=== PATIENT | male | born 1945 | race Caucasian/White ===

== ENCOUNTER 2017-09-16 13:08 | Inpatient (IN) | payer OTHER ==
[2017-09-16] MEDS: ONDANSETRON 4MG/2ML VIAL (J2405) IV (13:50)
[2017-09-16] MEDS: ADACEL/BOOSTRIX VACCINE (DIPHTH/PERTUSS/ACELL/TETANUS)0.5ML SYR (90715) IM (13:50)
[2017-09-16] MEDS: MORPHINE 4 MG/ML 1ML VIAL/SYRINGE (J2270) IV ×2 (13:51→15:44)
[2017-09-16 14:43] LABS: HEMATOCRIT 38.7 % (42.0-52.0); HEMOGLOBIN 13.4 g/dl (13.5-17.5); MEAN CORPUSCULAR HEMOGLOBIN 30.9 pg (27.0-33.0); MEAN CORPUSCULAR HGB CONC 34.6 g/dl (32.0-36.5); MEAN CORPUSCULAR VOLUME 89.4 fl (80.0-96.0); PLATELET COUNT, AUTOMATED 173 10^3/uL (150-450); RED BLOOD COUNT 4.33 10^6/uL (4.30-6.10); RED CELL DISTRIBUTION WIDTH 12.6 % (11.5-14.5); WHITE BLOOD COUNT 5.9 10^3/uL (4.0-10.0)
[2017-09-16 14:50] LABS: ALBUMIN 3.9 GM/DL (3.2-5.2); ALBUMIN/GLOBULIN RATIO 1.18 (1.00-1.93); ALKALINE PHOSPHATASE 61 U/L (45-117); ALT/SGPT 139 U/L (12-78); ANION GAP 11 MEQ/L (8-16); AST/SGOT 140 U/L (7-37); BILIRUBIN,DIRECT 0.1 MG/DL (0.0-0.2); BILIRUBIN,TOTAL 0.9 MG/DL (0.2-1.0); BLOOD UREA NITROGEN 23 MG/DL (7-18); CALCIUM LEVEL 8.9 MG/DL (8.8-10.2); CARBON DIOXIDE LEVEL 25 MEQ/L (21-32); CHLORIDE LEVEL 106 MEQ/L (98-107); CREATININE FOR GFR 1.37 MG/DL (0.70-1.30); GLOMERULAR FILTRATION RATE 54.7 (>42); GLUCOSE, FASTING 168 MG/DL (70-100); POTASSIUM SERUM 4.2 MEQ/L (3.5-5.1); SODIUM LEVEL 142 MEQ/L (136-145); TOTAL PROTEIN 7.2 GM/DL (6.4-8.2)
[2017-09-16] MEDS ORDERED: ISOVUE-370 76% 100ML VIAL (Q9967) As Ordered (14:57)
[2017-09-16] MEDS: NS 1,000 ML IV (16:00)
[2017-09-16 16:06] LABS: INR 0.94; PROTHROMBIN TIME 12.7 SECONDS (12.4-14.5)
[2017-09-16 16:07] LABS: PARTIAL THROMBOPLASTIN TIME 24.6 SECONDS (26.8-37.9)
[2017-09-16 16:37] LABS: ABG BASE EXCESS -3.3 (-2.0-2.0); ABG HCO3 21.9 MEQ/L (22.0-26.0); ABG O2 SATURATION 90.9 % (95.0-99.0); ABG PARTIAL PRESSURE CO2 39.9 mmHg (35.0-45.0); ABG PARTIAL PRESSURE O2 59.3 mmHg (75.0-100.0); ABG STANDARD HCO3 21.6 MEQ/L (22.0-26.0); ABG TOTAL CO2 23.1 MEQ/L (23.0-31.0); ABG pH (ARTERIAL) 7.357 UNITS (7.350-7.450)
[2017-09-16] MEDS ORDERED: BISACODYL 10 MG SUPP PR (17:00)
[2017-09-16] MEDS ORDERED: ONDANSETRON 4MG/2ML VIAL (J2405) IV ×2 (17:00→18:00)
[2017-09-16] MEDS ORDERED: PERCOCET 5MG/325MG TAB PO ×2 (17:00)
[2017-09-16] MEDS ORDERED: LEVALBUTEROL 1.25 MG/0.5 ML CONCENTRATE NEB NEB (17:00)
[2017-09-16] MEDS ORDERED: FENTANYL 2MCG/ML BUPIVACAINE 0.0625% NACL 250ML IV BAG As Ordered (17:43)
[2017-09-16] MEDS ORDERED: NALOXONE INJ 0.4 MG/1 ML VIAL (J2310) IV (18:00)
[2017-09-16] MEDS ORDERED: EPIDURAL/PCA KEYS XX (18:00)
[2017-09-16] MEDS ORDERED: KETOROLAC 30 MG/ML VIAL (J1885) IV (18:00)
[2017-09-16] MEDS ORDERED: WALLBOXKEY XX (18:00)
[2017-09-16] MEDS ORDERED: METOCLOPRAMIDE INJ 10MG/2ML VIAL (J2765) IV (18:00)
[2017-09-16] MEDS ORDERED: diphenhydrAMINE INJ 50MG/ML VIAL (J1200) IV (18:00)
[2017-09-16] MEDS ORDERED: MIDAZOLAM INJ 2 MG/2 ML VIAL (J2250) As Ordered (18:00)
[2017-09-16] MEDS ORDERED: fentaNYL 100 MCG/2 ML INJECTION (J3010) As Ordered (18:00)
[2017-09-16] MEDS: fentaNYL 100 MCG/2 ML INJECTION (J3010) IV (18:14)
[2017-09-16] MEDS: MIDAZOLAM INJ 2 MG/2 ML VIAL (J2250) IV ×2 (18:14→18:15)
[2017-09-16] MEDS: NS 500 ML IV (19:00)
[2017-09-16] MEDS ORDERED: PHENYLEPHRINE INJ 10MG/ML VIAL (J2370) As Ordered (19:13)
[2017-09-16] MEDS: LEVALBUTEROL 1.25 MG/0.5 ML CONCENTRATE NEB NEB (20:00)
[2017-09-16] MEDS: KCL 20MEQ IN D5/NS 1000ML 1,000 ML IV (20:22)
[2017-09-16] MEDS: FENTANYL/BUPIVACAINE/NACL BAG 250 ML EPIDURAL (20:23)
[2017-09-16] MEDS: AMOXICILLIN 500 MG CAP PO (20:28)
[2017-09-16] MEDS: DOCUSATE SODIUM 100 MG CAP PO (20:28)
[2017-09-16] MEDS: HEPARIN SOD (PORCINE) 5000 UNITS/ML VIAL SC (20:28)
[2017-09-16] MEDS ORDERED: NS 500 ML IV (20:30)
[2017-09-16] MEDS: NEOSPORIN TOP OINT 15GM TOP (20:30)
[2017-09-16 20:48] LABS: BEDSIDE GLUCOSE 175 MG/DL (83-110)
[2017-09-16] MEDS ORDERED: PHENYLEPHRINE HCL INJ 50 MG in D5W 500 ML IV (22:15)
[2017-09-17] MEDS: ACETAMINOPHEN TAB 650MG DOSE (2X325MG) PO (02:03)
[2017-09-17] MEDS: LEVALBUTEROL 1.25 MG/0.5 ML CONCENTRATE NEB NEB ×4 (02:43→20:10)
[2017-09-17] MEDS: LEVOTHYROXINE 75MCG TABLET (0.075MG) PO (05:38)
[2017-09-17 05:39] LABS: BASO % 0.3 % (0.0-1.0); EOS % 0.6 % (0.0-3.0); HEMATOCRIT 31.3 % (42.0-52.0); IMMATURE GRANULOCYTE % 0.3 % (0-3.0); LYMPH # 0.7 10^3/uL (1.5-4.5); LYMPH % 10.8 % (24.0-44.0); MEAN CORPUSCULAR HEMOGLOBIN 31.3 pg (27.0-33.0); MEAN CORPUSCULAR HGB CONC 35.5 g/dl (32.0-36.5); MEAN CORPUSCULAR VOLUME 88.2 fl (80.0-96.0); MONO # 0.7 10^3/uL (0.0-0.8); MONO % 9.8 % (0.0-5.0); NEUTROPHILS # 5.2 10^3/uL (1.8-7.7); NEUTROPHILS % 78.2 % (36.0-66.0); PLATELET COUNT, AUTOMATED 140 10^3/uL (150-450); RED BLOOD COUNT 3.55 10^6/uL (4.30-6.10); RED CELL DISTRIBUTION WIDTH 12.9 % (11.5-14.5); WHITE BLOOD COUNT 6.6 10^3/uL (4.0-10.0)
[2017-09-17 05:42] LABS: HEMOGLOBIN 11.1 g/dl (13.5-17.5)
[2017-09-17 06:00] LABS: ABG HCO3 22.3 MEQ/L (22.0-26.0); ABG PARTIAL PRESSURE O2 72.8 mmHg (75.0-100.0); ABG TOTAL CO2 23.4 MEQ/L (23.0-31.0); ABG pH (ARTERIAL) 7.409 UNITS (7.350-7.450)
[2017-09-17 06:01] LABS: ABG BASE EXCESS -1.9 (-2.0-2.0); ABG O2 SATURATION 95.1 % (95.0-99.0); ABG STANDARD HCO3 22.8 MEQ/L (22.0-26.0)
[2017-09-17 07:14] LABS: ANION GAP 6 MEQ/L (8-16); BLOOD UREA NITROGEN 20 MG/DL (7-18); CALCIUM LEVEL 7.9 MG/DL (8.8-10.2); CARBON DIOXIDE LEVEL 26 MEQ/L (21-32); CHLORIDE LEVEL 110 MEQ/L (98-107); CREATININE FOR GFR 1.19 MG/DL (0.70-1.30); GLOMERULAR FILTRATION RATE > 60.0 (>42); GLUCOSE, FASTING 188 MG/DL (70-100); POTASSIUM SERUM 4.4 MEQ/L (3.5-5.1); SODIUM LEVEL 142 MEQ/L (136-145)
[2017-09-17] MEDS: MOM 30ML SUSPENSION UDC PO (09:13)
[2017-09-17] MEDS: HEPARIN SOD (PORCINE) 5000 UNITS/ML VIAL SC ×2 (09:13→21:22)
[2017-09-17] MEDS: KCL 20MEQ IN D5/NS 1000ML 1,000 ML IV ×2 (09:13→21:18)
[2017-09-17] MEDS: DOCUSATE SODIUM 100 MG CAP PO ×2 (09:13→21:21)
[2017-09-17] MEDS: GLIMEPIRIDE 2 MG TAB PO ×2 (09:14→17:05)
[2017-09-17] MEDS: AMOXICILLIN 500 MG CAP PO ×2 (09:14→21:20)
[2017-09-17] MEDS: ASPIRIN 81 MG ENTERIC TAB PO (09:14)
[2017-09-17] MEDS: PANTOPRAZOLE 40MG TAB (PROTONIX) PO (09:14)
[2017-09-17] MEDS: PRAVASTATIN 20 MG TAB PO (09:14)
[2017-09-17] MEDS: SITagliptin 50 MG TAB (JANUVIA) PO (09:14)
[2017-09-17] MEDS: metFORMIN (GLUCOPHAGE) 1000 MG TABLET PO ×2 (09:14→11:23)
[2017-09-17] MEDS ORDERED: GLUCAGON FOR INJ 1 MG VIAL (J1610) SC (09:15)
[2017-09-17] MEDS ORDERED: DEXTROSE 50% 50 ML SYRINGE IV (09:15)
[2017-09-17] MEDS ORDERED: GLUCOSE 4 GM CHEW TABLET PO (09:15)
[2017-09-17] MEDS: NEOSPORIN TOP OINT 15GM TOP ×2 (09:16→21:23)
[2017-09-17] MEDS: LISINOPRIL 10 MG TAB PO (09:19)
[2017-09-17] MEDS: KETOROLAC 30 MG/ML VIAL (J1885) IV ×3 (10:05→21:23)
[2017-09-17 11:12] LABS: BEDSIDE GLUCOSE 221 MG/DL (83-110)
[2017-09-17] MEDS: HumaLOG INSULIN (NovoLOG) PER UNIT SC ×3 (11:23→21:00)
[2017-09-17 16:40] LABS: BEDSIDE GLUCOSE 200 MG/DL (83-110)
[2017-09-17] MEDS: FENTANYL/BUPIVACAINE/NACL BAG 250 ML EPIDURAL (18:49)
[2017-09-17 21:21] LABS: BEDSIDE GLUCOSE 155 MG/DL (83-110)
[2017-09-17] MEDS: TAMSULOSIN 0.4 MG CAP PO (21:21)
[2017-09-18] MEDS: LEVALBUTEROL 1.25 MG/0.5 ML CONCENTRATE NEB NEB ×4 (02:09→19:47)
[2017-09-18] MEDS: KETOROLAC 30 MG/ML VIAL (J1885) IV ×4 (03:55→20:02)
[2017-09-18 05:19] LABS: BASO % 0.4 % (0.0-1.0); EOS # 0.1 10^3/uL (0.0-0.50); EOS % 1.8 % (0.0-3.0); HEMATOCRIT 29.7 % (42.0-52.0); HEMOGLOBIN 10.3 g/dl (13.5-17.5); IMMATURE GRANULOCYTE % 0.4 % (0-3.0); LYMPH # 0.7 10^3/uL (1.5-4.5); LYMPH % 14.6 % (24.0-44.0); MEAN CORPUSCULAR HGB CONC 34.7 g/dl (32.0-36.5); MEAN CORPUSCULAR VOLUME 89.5 fl (80.0-96.0); MONO # 0.5 10^3/uL (0.0-0.8); MONO % 10.3 % (0.0-5.0); NEUTROPHILS # 3.6 10^3/uL (1.8-7.7); NEUTROPHILS % 72.5 % (36.0-66.0); PLATELET COUNT, AUTOMATED 111 10^3/uL (150-450); RED BLOOD COUNT 3.32 10^6/uL (4.30-6.10); RED CELL DISTRIBUTION WIDTH 12.9 % (11.5-14.5); WHITE BLOOD COUNT 4.9 10^3/uL (4.0-10.0)
[2017-09-18 05:36] LABS: ANION GAP 12 MEQ/L (8-16); BLOOD UREA NITROGEN 22 MG/DL (7-18); CALCIUM LEVEL 7.5 MG/DL (8.8-10.2); CARBON DIOXIDE LEVEL 23 MEQ/L (21-32); CHLORIDE LEVEL 109 MEQ/L (98-107); CREATININE FOR GFR 1.25 MG/DL (0.70-1.30); GLOMERULAR FILTRATION RATE > 60.0 (>42); GLUCOSE, FASTING 205 MG/DL (70-100); POTASSIUM SERUM 4.3 MEQ/L (3.5-5.1); SODIUM LEVEL 144 MEQ/L (136-145)
[2017-09-18] MEDS: LEVOTHYROXINE 75MCG TABLET (0.075MG) PO (06:00)
[2017-09-18] MEDS: ASPIRIN 81 MG ENTERIC TAB PO (08:06)
[2017-09-18] MEDS: HEPARIN SOD (PORCINE) 5000 UNITS/ML VIAL SC ×2 (08:06→20:01)
[2017-09-18] MEDS: LISINOPRIL 10 MG TAB PO (08:06)
[2017-09-18] MEDS: SITagliptin 50 MG TAB (JANUVIA) PO (08:06)
[2017-09-18] MEDS: MOM 30ML SUSPENSION UDC PO (08:06)
[2017-09-18] MEDS: AMOXICILLIN 500 MG CAP PO ×2 (08:06→20:01)
[2017-09-18] MEDS: DOCUSATE SODIUM 100 MG CAP PO ×2 (08:06→20:01)
[2017-09-18] MEDS: PANTOPRAZOLE 40MG TAB (PROTONIX) PO (08:06)
[2017-09-18] MEDS: PRAVASTATIN 20 MG TAB PO (08:06)
[2017-09-18] MEDS: HumaLOG INSULIN (NovoLOG) PER UNIT SC ×4 (08:07→20:03)
[2017-09-18] MEDS: GLIMEPIRIDE 2 MG TAB PO ×2 (08:07→17:11)
[2017-09-18] MEDS: NEOSPORIN TOP OINT 15GM TOP ×2 (10:29→20:00)
[2017-09-18] MEDS: KCL 20MEQ IN D5/NS 1000ML 1,000 ML IV (10:29)
[2017-09-18 11:25] LABS: BEDSIDE GLUCOSE 187 MG/DL (83-110)
[2017-09-18] MEDS ORDERED: LIDOCAINE 1% MDV 20ML VIAL As Ordered (12:29)
[2017-09-18] MEDS ORDERED: MIDAZOLAM INJ 2 MG/2 ML VIAL (J2250) As Ordered ×4 (12:29)
[2017-09-18] MEDS ORDERED: FLUMAZENIL 0.5 MG/5 ML VIAL As Ordered (12:30)
[2017-09-18] MEDS ORDERED: SLF 3 ML SYR IV (13:15)
[2017-09-18] MEDS: MIDAZOLAM INJ 2 MG/2 ML VIAL (J2250) IV (14:00)
[2017-09-18] MEDS: LIDOCAINE 1% MDV 20ML VIAL IM (14:01)
[2017-09-18] MEDS: metFORMIN (GLUCOPHAGE) 1000 MG TABLET PO ×2 (14:01→17:11)
[2017-09-18 14:02] LABS: LDH LACTATE DEHYDROGENASE 262 U/L (87-241)
[2017-09-18 14:26] LABS: PH BODY FLUID 7.464 UNITS (NOT ESTABLISHED); SOURCE, BODY FLUID pH PLEURAL
[2017-09-18 14:49] LABS: SOURCE, BODY FLUID PLEURAL
[2017-09-18 14:50] LABS: APPEARANCE, BODY FLUID TURBID (CLEAR); PLEURAL FL COLOR RED (COLORLESS); RBC BODY FLUID 1704 10^3/uL (<2); WBC BODY FLUID 5322 /uL (0-10)
[2017-09-18 14:51] LABS: BF DIFF IF INDICATED? YES (NO)
[2017-09-18 15:02] LABS: AMYLASE, BODY FLUID 37 U/L (NOT ESTABLISHED); CHOLESTEROL, BODY FLUID 51 MG/DL (NOT ESTABLISHED); LDH, BODY FLUID 1758 U/L (NOT ESTABLISHED); SOURCE, BODY FLUID ALBUMIN PLEURAL; SOURCE, BODY FLUID AMYLASE PLEURAL; SOURCE, BODY FLUID CHOL PLEURAL; SOURCE, BODY FLUID GLUCOSE PLEURAL; SOURCE, BODY FLUID LDH PLEURAL; SOURCE, BODY FLUID TOT PROTEIN PLEURAL; SOURCE, BODY FLUID TRIG PLEURAL; TOTAL PROTEIN, BODY FLUID 3.5 G/DL (NOT ESTABLISHED); TRIGLYCERIDE, BODY FLUID 83 MG/DL (NOT ESTABLISHED)
[2017-09-18] MEDS: SLF 3 ML SYR IV ×2 (15:58→20:02)
[2017-09-18 16:53] LABS: BEDSIDE GLUCOSE 139 MG/DL (83-110)
[2017-09-18] MEDS: FENTANYL/BUPIVACAINE/NACL BAG 250 ML EPIDURAL (18:12)
[2017-09-18 20:01] LABS: BEDSIDE GLUCOSE 144 MG/DL (83-110)
[2017-09-18] MEDS: TAMSULOSIN 0.4 MG CAP PO (20:01)
[2017-09-18] MEDS: ACETAMINOPHEN TAB 650MG DOSE (2X325MG) PO (23:08)
[2017-09-19] MEDS: LEVALBUTEROL 1.25 MG/0.5 ML CONCENTRATE NEB NEB ×4 (02:37→20:12)
[2017-09-19] MEDS: KETOROLAC 30 MG/ML VIAL (J1885) IV ×4 (02:41→20:03)
[2017-09-19 05:12] LABS: BASO % 0.9 % (0.0-1.0); EOS # 0.2 10^3/uL (0.0-0.50); EOS % 3.2 % (0.0-3.0); HEMATOCRIT 29.1 % (42.0-52.0); HEMOGLOBIN 10.2 g/dl (13.5-17.5); IMMATURE GRANULOCYTE % 0.2 % (0-3.0); LYMPH % 20.8 % (24.0-44.0); MEAN CORPUSCULAR HEMOGLOBIN 31.5 pg (27.0-33.0); MEAN CORPUSCULAR HGB CONC 35.1 g/dl (32.0-36.5); MEAN CORPUSCULAR VOLUME 89.8 fl (80.0-96.0); MONO # 0.4 10^3/uL (0.0-0.8); MONO % 8.7 % (0.0-5.0); NEUTROPHILS # 3.1 10^3/uL (1.8-7.7); NEUTROPHILS % 66.2 % (36.0-66.0); PLATELET COUNT, AUTOMATED 114 10^3/uL (150-450); RED BLOOD COUNT 3.24 10^6/uL (4.30-6.10); RED CELL DISTRIBUTION WIDTH 12.8 % (11.5-14.5); WHITE BLOOD COUNT 4.6 10^3/uL (4.0-10.0)
[2017-09-19 05:31] LABS: ANION GAP 8 MEQ/L (8-16); BLOOD UREA NITROGEN 22 MG/DL (7-18); CALCIUM LEVEL 7.5 MG/DL (8.8-10.2); CARBON DIOXIDE LEVEL 24 MEQ/L (21-32); CHLORIDE LEVEL 111 MEQ/L (98-107); CREATININE FOR GFR 1.24 MG/DL (0.70-1.30); GLOMERULAR FILTRATION RATE > 60.0 (>42); GLUCOSE, FASTING 180 MG/DL (70-100); POTASSIUM SERUM 4.4 MEQ/L (3.5-5.1); SODIUM LEVEL 143 MEQ/L (136-145)
[2017-09-19] MEDS: SLF 3 ML SYR IV ×3 (05:39→21:00)
[2017-09-19] MEDS: LEVOTHYROXINE 75MCG TABLET (0.075MG) PO (06:04)
[2017-09-19] MEDS: metFORMIN (GLUCOPHAGE) 1000 MG TABLET PO ×3 (08:33→18:15)
[2017-09-19] MEDS: HumaLOG INSULIN (NovoLOG) PER UNIT SC ×4 (08:33→20:58)
[2017-09-19] MEDS: GLIMEPIRIDE 2 MG TAB PO ×2 (08:33→18:16)
[2017-09-19] MEDS: PANTOPRAZOLE 40MG TAB (PROTONIX) PO (09:39)
[2017-09-19] MEDS: ASPIRIN 81 MG ENTERIC TAB PO (09:39)
[2017-09-19] MEDS: MOM 30ML SUSPENSION UDC PO (09:39)
[2017-09-19] MEDS: AMOXICILLIN 500 MG CAP PO ×2 (09:39→20:04)
[2017-09-19] MEDS: DOCUSATE SODIUM 100 MG CAP PO ×2 (09:39→20:04)
[2017-09-19] MEDS: SITagliptin 50 MG TAB (JANUVIA) PO (09:39)
[2017-09-19] MEDS: HEPARIN SOD (PORCINE) 5000 UNITS/ML VIAL SC ×2 (09:40→20:04)
[2017-09-19] MEDS: LISINOPRIL 10 MG TAB PO (09:40)
[2017-09-19] MEDS: PRAVASTATIN 20 MG TAB PO (09:40)
[2017-09-19] MEDS: NEOSPORIN TOP OINT 15GM TOP ×2 (09:41→20:04)
[2017-09-19 12:27] LABS: BEDSIDE GLUCOSE 143 MG/DL (83-110)
[2017-09-19] MEDS: ACETAMINOPHEN TAB 650MG DOSE (2X325MG) PO (16:59)
[2017-09-19 18:07] LABS: BEDSIDE GLUCOSE 91 MG/DL (83-110)
[2017-09-19] MEDS: FENTANYL/BUPIVACAINE/NACL BAG 250 ML EPIDURAL (18:14)
[2017-09-19] MEDS: TAMSULOSIN 0.4 MG CAP PO (20:05)
[2017-09-19 20:54] LABS: BEDSIDE GLUCOSE 109 MG/DL (83-110)
[2017-09-20] MEDS: LEVALBUTEROL 1.25 MG/0.5 ML CONCENTRATE NEB NEB ×4 (02:00→19:55)
[2017-09-20] MEDS: KETOROLAC 30 MG/ML VIAL (J1885) IV ×2 (02:55→09:08)
[2017-09-20 04:12] LABS: BASO % 0.4 % (0.0-1.0); EOS # 0.1 10^3/uL (0.0-0.50); EOS % 2.5 % (0.0-3.0); HEMATOCRIT 27.8 % (42.0-52.0); HEMOGLOBIN 9.6 g/dl (13.5-17.5); IMMATURE GRANULOCYTE % 0.4 % (0-3.0); LYMPH # 0.6 10^3/uL (1.5-4.5); LYMPH % 12.3 % (24.0-44.0); MEAN CORPUSCULAR HEMOGLOBIN 31.2 pg (27.0-33.0); MEAN CORPUSCULAR HGB CONC 34.5 g/dl (32.0-36.5); MEAN CORPUSCULAR VOLUME 90.3 fl (80.0-96.0); MONO # 0.4 10^3/uL (0.0-0.8); MONO % 8.3 % (0.0-5.0); NEUTROPHILS # 3.7 10^3/uL (1.8-7.7); NEUTROPHILS % 76.1 % (36.0-66.0); PLATELET COUNT, AUTOMATED 120 10^3/uL (150-450); RED BLOOD COUNT 3.08 10^6/uL (4.30-6.10); RED CELL DISTRIBUTION WIDTH 12.7 % (11.5-14.5); WHITE BLOOD COUNT 4.8 10^3/uL (4.0-10.0)
[2017-09-20 04:27] LABS: ANION GAP 9 MEQ/L (8-16); BLOOD UREA NITROGEN 27 MG/DL (7-18); CALCIUM LEVEL 7.4 MG/DL (8.8-10.2); CARBON DIOXIDE LEVEL 24 MEQ/L (21-32); CHLORIDE LEVEL 109 MEQ/L (98-107); CREATININE FOR GFR 1.35 MG/DL (0.70-1.30); GLOMERULAR FILTRATION RATE 55.6 (>42); GLUCOSE, FASTING 142 MG/DL (70-100); SODIUM LEVEL 142 MEQ/L (136-145)
[2017-09-20 04:29] LABS: POTASSIUM SERUM 5.3 MEQ/L (3.5-5.1)
[2017-09-20] MEDS: SLF 3 ML SYR IV ×3 (05:34→20:57)
[2017-09-20] MEDS: LEVOTHYROXINE 75MCG TABLET (0.075MG) PO (05:34)
[2017-09-20] MEDS: MOM 30ML SUSPENSION UDC PO (09:00)
[2017-09-20] MEDS: ASPIRIN 81 MG ENTERIC TAB PO (09:01)
[2017-09-20] MEDS: DOCUSATE SODIUM 100 MG CAP PO ×2 (09:01→20:55)
[2017-09-20] MEDS: AMOXICILLIN 500 MG CAP PO ×2 (09:01→20:55)
[2017-09-20] MEDS: SITagliptin 50 MG TAB (JANUVIA) PO (09:01)
[2017-09-20] MEDS: LISINOPRIL 10 MG TAB PO (09:02)
[2017-09-20] MEDS: metFORMIN (GLUCOPHAGE) 1000 MG TABLET PO ×3 (09:03→18:24)
[2017-09-20] MEDS: PRAVASTATIN 20 MG TAB PO (09:03)
[2017-09-20] MEDS: PANTOPRAZOLE 40MG TAB (PROTONIX) PO (09:03)
[2017-09-20] MEDS: GLIMEPIRIDE 2 MG TAB PO ×2 (09:04→18:24)
[2017-09-20] MEDS: HumaLOG INSULIN (NovoLOG) PER UNIT SC ×4 (09:06→20:57)
[2017-09-20] MEDS: HEPARIN SOD (PORCINE) 5000 UNITS/ML VIAL SC ×2 (09:06→20:55)
[2017-09-20] MEDS: NEOSPORIN TOP OINT 15GM TOP ×2 (09:08→20:56)
[2017-09-20 12:20] LABS: BEDSIDE GLUCOSE 133 MG/DL (83-110)
[2017-09-20] MEDS: ACETAMINOPHEN TAB 650MG DOSE (2X325MG) PO (12:37)
[2017-09-20 17:38] LABS: BEDSIDE GLUCOSE 92 MG/DL (83-110)
[2017-09-20] MEDS: FENTANYL/BUPIVACAINE/NACL BAG 250 ML EPIDURAL (18:16)
[2017-09-20 20:23] LABS: BEDSIDE GLUCOSE 115 MG/DL (83-110)
[2017-09-20] MEDS: TAMSULOSIN 0.4 MG CAP PO (20:55)
[2017-09-21] MEDS: LEVALBUTEROL 1.25 MG/0.5 ML CONCENTRATE NEB NEB ×4 (00:54→19:59)
[2017-09-21] MEDS: ACETAMINOPHEN TAB 650MG DOSE (2X325MG) PO (01:06)
[2017-09-21 04:58] LABS: BASO % 0.6 % (0.0-1.0); EOS # 0.2 10^3/uL (0.0-0.50); EOS % 3.3 % (0.0-3.0); HEMATOCRIT 25.5 % (42.0-52.0); IMMATURE GRANULOCYTE % 0.4 % (0-3.0); LYMPH # 0.8 10^3/uL (1.5-4.5); LYMPH % 16.5 % (24.0-44.0); MEAN CORPUSCULAR HGB CONC 35.3 g/dl (32.0-36.5); MEAN CORPUSCULAR VOLUME 87.9 fl (80.0-96.0); MONO # 0.5 10^3/uL (0.0-0.8); MONO % 8.8 % (0.0-5.0); NEUTROPHILS # 3.6 10^3/uL (1.8-7.7); NEUTROPHILS % 70.4 % (36.0-66.0); PLATELET COUNT, AUTOMATED 142 10^3/uL (150-450); RED CELL DISTRIBUTION WIDTH 12.4 % (11.5-14.5); WHITE BLOOD COUNT 5.1 10^3/uL (4.0-10.0)
[2017-09-21 05:07] LABS: ANION GAP 8 MEQ/L (8-16); BLOOD UREA NITROGEN 26 MG/DL (7-18); CALCIUM LEVEL 8.1 MG/DL (8.8-10.2); CARBON DIOXIDE LEVEL 25 MEQ/L (21-32); CHLORIDE LEVEL 106 MEQ/L (98-107); CREATININE FOR GFR 1.26 MG/DL (0.70-1.30); GLOMERULAR FILTRATION RATE > 60.0 (>42); GLUCOSE, FASTING 140 MG/DL (70-100); POTASSIUM SERUM 4.5 MEQ/L (3.5-5.1); SODIUM LEVEL 139 MEQ/L (136-145)
[2017-09-21] MEDS: LEVOTHYROXINE 75MCG TABLET (0.075MG) PO (06:20)
[2017-09-21] MEDS: SLF 3 ML SYR IV ×3 (06:20→20:35)
[2017-09-21] MEDS: MOM 30ML SUSPENSION UDC PO (09:00)
[2017-09-21] MEDS: SITagliptin 50 MG TAB (JANUVIA) PO (09:38)
[2017-09-21] MEDS: AMOXICILLIN 500 MG CAP PO ×2 (09:38→20:32)
[2017-09-21] MEDS: ASPIRIN 81 MG ENTERIC TAB PO (09:39)
[2017-09-21] MEDS: PRAVASTATIN 20 MG TAB PO (09:39)
[2017-09-21] MEDS: GLIMEPIRIDE 2 MG TAB PO ×2 (09:39→18:00)
[2017-09-21] MEDS: DOCUSATE SODIUM 100 MG CAP PO ×2 (09:39→20:32)
[2017-09-21] MEDS: PANTOPRAZOLE 40MG TAB (PROTONIX) PO (09:39)
[2017-09-21] MEDS: metFORMIN (GLUCOPHAGE) 1000 MG TABLET PO ×3 (09:40→18:00)
[2017-09-21] MEDS: HEPARIN SOD (PORCINE) 5000 UNITS/ML VIAL SC ×2 (09:41→20:32)
[2017-09-21] MEDS: HumaLOG INSULIN (NovoLOG) PER UNIT SC ×4 (09:41→20:33)
[2017-09-21] MEDS: NEOSPORIN TOP OINT 15GM TOP ×2 (09:42→20:34)
[2017-09-21 12:37] LABS: BEDSIDE GLUCOSE 125 MG/DL (83-110)
[2017-09-21] MEDS: KETOROLAC 30 MG/ML VIAL (J1885) IV ×2 (12:53→18:21)
[2017-09-21] MEDS: FUROSEMIDE 40 MG/4 ML VIAL (J1940) IV (12:54)
[2017-09-21 16:51] LABS: BEDSIDE GLUCOSE 117 MG/DL (83-110)
[2017-09-21] MEDS: FENTANYL/BUPIVACAINE/NACL BAG 250 ML EPIDURAL (18:00)
[2017-09-21 20:19] LABS: BEDSIDE GLUCOSE 93 MG/DL (83-110)
[2017-09-21] MEDS: TAMSULOSIN 0.4 MG CAP PO (20:32)
[2017-09-22] MEDS: LEVALBUTEROL 1.25 MG/0.5 ML CONCENTRATE NEB NEB ×4 (01:17→19:52)
[2017-09-22] MEDS: KETOROLAC 30 MG/ML VIAL (J1885) IV ×4 (01:22→18:37)
[2017-09-22] MEDS: NORCO, ANEXSIA 5/325MG TABLET (HYDROcodone/ACETAMINOPHEN) PO ×3 (04:22→20:24)
[2017-09-22 04:29] LABS: BASO % 0.6 % (0.0-1.0); EOS # 0.2 10^3/uL (0.0-0.50); EOS % 3.7 % (0.0-3.0); HEMATOCRIT 27.5 % (42.0-52.0); HEMOGLOBIN 9.6 g/dl (13.5-17.5); IMMATURE GRANULOCYTE % 0.4 % (0-3.0); LYMPH # 0.7 10^3/uL (1.5-4.5); LYMPH % 13.9 % (24.0-44.0); MEAN CORPUSCULAR HEMOGLOBIN 30.5 pg (27.0-33.0); MEAN CORPUSCULAR HGB CONC 34.9 g/dl (32.0-36.5); MEAN CORPUSCULAR VOLUME 87.3 fl (80.0-96.0); MONO # 0.4 10^3/uL (0.0-0.8); MONO % 7.5 % (0.0-5.0); NEUTROPHILS # 3.8 10^3/uL (1.8-7.7); NEUTROPHILS % 73.9 % (36.0-66.0); PLATELET COUNT, AUTOMATED 149 10^3/uL (150-450); RED BLOOD COUNT 3.15 10^6/uL (4.30-6.10); RED CELL DISTRIBUTION WIDTH 12.3 % (11.5-14.5); WHITE BLOOD COUNT 5.1 10^3/uL (4.0-10.0)
[2017-09-22 04:53] LABS: ANION GAP 9 MEQ/L (8-16); BLOOD UREA NITROGEN 26 MG/DL (7-18); CALCIUM LEVEL 8.4 MG/DL (8.8-10.2); CARBON DIOXIDE LEVEL 26 MEQ/L (21-32); CHLORIDE LEVEL 104 MEQ/L (98-107); GLOMERULAR FILTRATION RATE 58.1 (>42); GLUCOSE, FASTING 146 MG/DL (70-100); POTASSIUM SERUM 4.6 MEQ/L (3.5-5.1); SODIUM LEVEL 139 MEQ/L (136-145)
[2017-09-22] MEDS: LEVOTHYROXINE 75MCG TABLET (0.075MG) PO (06:17)
[2017-09-22] MEDS: SLF 3 ML SYR IV ×3 (06:18→22:00)
[2017-09-22] MEDS: FUROSEMIDE 40 MG/4 ML VIAL (J1940) IV (08:00)
[2017-09-22] MEDS: metFORMIN (GLUCOPHAGE) 1000 MG TABLET PO ×3 (08:00→17:46)
[2017-09-22] MEDS: GLIMEPIRIDE 2 MG TAB PO ×2 (08:00→17:46)
[2017-09-22] MEDS: HumaLOG INSULIN (NovoLOG) PER UNIT SC ×4 (08:00→21:00)
[2017-09-22] MEDS: ASPIRIN 81 MG ENTERIC TAB PO (09:00)
[2017-09-22] MEDS: AMOXICILLIN 500 MG CAP PO ×2 (09:00→20:22)
[2017-09-22] MEDS: SITagliptin 50 MG TAB (JANUVIA) PO (09:00)
[2017-09-22] MEDS: NEOSPORIN TOP OINT 15GM TOP ×2 (09:00→21:00)
[2017-09-22] MEDS: PANTOPRAZOLE 40MG TAB (PROTONIX) PO (09:00)
[2017-09-22] MEDS: MOM 30ML SUSPENSION UDC PO (09:00)
[2017-09-22] MEDS: DOCUSATE SODIUM 100 MG CAP PO ×2 (09:00→20:24)
[2017-09-22] MEDS: PRAVASTATIN 20 MG TAB PO (09:00)
[2017-09-22 12:03] LABS: BEDSIDE GLUCOSE 87 MG/DL (83-110)
[2017-09-22] MEDS: HEPARIN SOD (PORCINE) 5000 UNITS/ML VIAL SC ×2 (12:30→20:22)
[2017-09-22 17:29] LABS: BEDSIDE GLUCOSE 103 MG/DL (83-110)
[2017-09-22] MEDS: TAMSULOSIN 0.4 MG CAP PO (20:22)
[2017-09-22 20:29] LABS: BEDSIDE GLUCOSE 83 MG/DL (83-110)
[2017-09-23] MEDS: KETOROLAC 30 MG/ML VIAL (J1885) IV ×4 (00:13→18:37)
[2017-09-23] MEDS: LEVALBUTEROL 1.25 MG/0.5 ML CONCENTRATE NEB NEB ×4 (00:33→19:55)
[2017-09-23] MEDS: LEVOTHYROXINE 75MCG TABLET (0.075MG) PO (05:34)
[2017-09-23] MEDS: NORCO, ANEXSIA 5/325MG TABLET (HYDROcodone/ACETAMINOPHEN) PO (05:36)
[2017-09-23] MEDS: SLF 3 ML SYR IV ×3 (06:00→21:22)
[2017-09-23] MEDS: GLIMEPIRIDE 2 MG TAB PO ×2 (07:30→17:32)
[2017-09-23] MEDS: HumaLOG INSULIN (NovoLOG) PER UNIT SC ×4 (07:30→21:00)
[2017-09-23 07:53] LABS: BEDSIDE GLUCOSE 87 MG/DL (83-110)
[2017-09-23] MEDS: metFORMIN (GLUCOPHAGE) 1000 MG TABLET PO ×2 (08:00→18:00)
[2017-09-23] MEDS: SITagliptin 50 MG TAB (JANUVIA) PO (08:45)
[2017-09-23] MEDS: MOM 30ML SUSPENSION UDC PO (08:46)
[2017-09-23] MEDS: HEPARIN SOD (PORCINE) 5000 UNITS/ML VIAL SC ×2 (08:46→20:23)
[2017-09-23] MEDS: NEOSPORIN TOP OINT 15GM TOP ×2 (08:46→21:00)
[2017-09-23] MEDS: PRAVASTATIN 20 MG TAB PO (08:47)
[2017-09-23] MEDS: ASPIRIN 81 MG ENTERIC TAB PO (08:47)
[2017-09-23] MEDS: DOCUSATE SODIUM 100 MG CAP PO ×2 (08:47→21:00)
[2017-09-23] MEDS: AMOXICILLIN 500 MG CAP PO ×2 (08:47→20:23)
[2017-09-23] MEDS: PANTOPRAZOLE 40MG TAB (PROTONIX) PO (08:47)
[2017-09-23 11:09] LABS: HEMOGLOBIN 9.9 g/dl (13.5-17.5); MEAN CORPUSCULAR HGB CONC 35.4 g/dl (32.0-36.5); MEAN CORPUSCULAR VOLUME 87.8 fl (80.0-96.0); PLATELET COUNT, AUTOMATED 161 10^3/uL (150-450); RED BLOOD COUNT 3.19 10^6/uL (4.30-6.10); RED CELL DISTRIBUTION WIDTH 12.1 % (11.5-14.5); WHITE BLOOD COUNT 4.3 10^3/uL (4.0-10.0)
[2017-09-23 11:50] LABS: ANION GAP 7 MEQ/L (8-16); BLOOD UREA NITROGEN 27 MG/DL (7-18); CALCIUM LEVEL 8.3 MG/DL (8.8-10.2); CARBON DIOXIDE LEVEL 30 MEQ/L (21-32); CHLORIDE LEVEL 104 MEQ/L (98-107); CREATININE FOR GFR 1.26 MG/DL (0.70-1.30); GLOMERULAR FILTRATION RATE > 60.0 (>42); GLUCOSE, FASTING 152 MG/DL (70-100); POTASSIUM SERUM 4.6 MEQ/L (3.5-5.1); SODIUM LEVEL 141 MEQ/L (136-145)
[2017-09-23 17:10] LABS: BEDSIDE GLUCOSE 127 MG/DL (83-110)
[2017-09-23] MEDS: TAMSULOSIN 0.4 MG CAP PO (20:23)
[2017-09-23 20:27] LABS: BEDSIDE GLUCOSE 152 MG/DL (83-110)
[2017-09-24] MEDS: KETOROLAC 30 MG/ML VIAL (J1885) IV ×2 (00:07→06:04)
[2017-09-24] MEDS: LEVALBUTEROL 1.25 MG/0.5 ML CONCENTRATE NEB NEB ×2 (01:35→07:53)
[2017-09-24 05:14] LABS: HEMATOCRIT 29.1 % (42.0-52.0); HEMOGLOBIN 10.3 g/dl (13.5-17.5); MEAN CORPUSCULAR HEMOGLOBIN 30.9 pg (27.0-33.0); MEAN CORPUSCULAR HGB CONC 35.4 g/dl (32.0-36.5); MEAN CORPUSCULAR VOLUME 87.4 fl (80.0-96.0); PLATELET COUNT, AUTOMATED 184 10^3/uL (150-450); RED BLOOD COUNT 3.33 10^6/uL (4.30-6.10); RED CELL DISTRIBUTION WIDTH 12.1 % (11.5-14.5); WHITE BLOOD COUNT 4.3 10^3/uL (4.0-10.0)
[2017-09-24 05:39] LABS: ANION GAP 8 MEQ/L (8-16); BLOOD UREA NITROGEN 25 MG/DL (7-18); CALCIUM LEVEL 8.1 MG/DL (8.8-10.2); CARBON DIOXIDE LEVEL 29 MEQ/L (21-32); CHLORIDE LEVEL 105 MEQ/L (98-107); CREATININE FOR GFR 1.28 MG/DL (0.70-1.30); GLOMERULAR FILTRATION RATE 59.1 (>42); GLUCOSE, FASTING 180 MG/DL (70-100); POTASSIUM SERUM 4.4 MEQ/L (3.5-5.1); SODIUM LEVEL 142 MEQ/L (136-145)
[2017-09-24] MEDS: LEVOTHYROXINE 75MCG TABLET (0.075MG) PO (06:04)
[2017-09-24] MEDS: SLF 3 ML SYR IV (06:04)
[2017-09-24] MEDS: HumaLOG INSULIN (NovoLOG) PER UNIT SC (07:41)
[2017-09-24] MEDS: metFORMIN (GLUCOPHAGE) 1000 MG TABLET PO (07:42)
[2017-09-24] MEDS: GLIMEPIRIDE 2 MG TAB PO (07:42)
[2017-09-24] MEDS: AMOXICILLIN 500 MG CAP PO (09:00)
[2017-09-24] MEDS: ASPIRIN 81 MG ENTERIC TAB PO (09:00)
[2017-09-24] MEDS: DOCUSATE SODIUM 100 MG CAP PO (09:00)
[2017-09-24] MEDS: SITagliptin 50 MG TAB (JANUVIA) PO (09:00)
[2017-09-24] MEDS: PANTOPRAZOLE 40MG TAB (PROTONIX) PO (09:00)
[2017-09-24] MEDS: PRAVASTATIN 20 MG TAB PO (09:00)
[2017-09-24] MEDS: MOM 30ML SUSPENSION UDC PO (09:00)
[2017-09-24] MEDS: NEOSPORIN TOP OINT 15GM TOP (09:01)
[2017-09-24] MEDS: HEPARIN SOD (PORCINE) 5000 UNITS/ML VIAL SC (09:01)
[2017-09-24] MEDS: NORCO, ANEXSIA 5/325MG TABLET (HYDROcodone/ACETAMINOPHEN) PO (11:47)
== END 2017-09-24 12:05 | disposition home or self-care (01) | DRG 183 ==
LOC: M ED 13:08 → M ED INP 16:51 → M ICU 20:10
PROC: 0W9930Z Drainage of Right Pleural Cavity with Drainage Device, Percutaneous Approach (ICD-10-PCS; principal; 2017-09-18)
DX: S22.5XXA Flail chest, initial encounter for closed fracture (principal); S27.331A Laceration of lung, unilateral, initial encounter; S27.2XXA Traumatic hemopneumothorax, initial encounter; S06.0X1A Concussion with loss of consciousness of 30 minutes or less, initial encounter; T79.7XXA Traumatic subcutaneous emphysema, initial encounter; D62 Acute posthemorrhagic anemia; E11.9 Type 2 diabetes mellitus without complications; I10 Essential (primary) hypertension; E03.9 Hypothyroidism, unspecified; N40.0 Benign prostatic hyperplasia without lower urinary tract symptoms; S02.5XXA Fracture of tooth (traumatic), initial encounter for closed fracture; R33.9 Retention of urine, unspecified; Z79.82 Long term (current) use of aspirin; Z79.899 Other long term (current) drug therapy; V20.9XXA Unspecified motorcycle rider injured in collision with pedestrian or animal in traffic accident, initial encounter